=== PATIENT | male | born 1995 | race Caucasian/White ===

== ENCOUNTER 2017-08-28 08:20 | Emergency (ER) | payer OTHER ==
[~2017-08-28] VITALS: Ht 177.8 cm; Wt 101.5 kg
[~2017-08-28 08:20] MED LIST: ABILIFY10 MG PO; CONCERTA36 MG PO; DEPAKOTE250 MG PO; GUANFACINE HCL E4 MG PO; INTUNIV3 MG PO; MELATONIN5 M1 PO; METH54T PO; ZARONTIN250 MG PO; ZOLOFT100 MG PO; ZOLOFT25 MG PO
[2017-08-28 09:27] LABS: HEMATOCRIT 41.9 % (38.0-50.0); HEMOGLOBIN 14.9 G/DL (12.5-16.6); MCH 31.6 PG (29.0-34.0); MCHC 35.6 G/DL (30.0-36.0); MCV 88.8 FL (86-99); PLATELET COUNT 205 K/uL (156-360); RBC DIS.WIDTH-CV 12.7 % (11.8-14.6); RBC DIS.WIDTH-SD 41.4 % (39-53); RED BLOOD COUNT 4.72 M/uL (4.00-5.50); WHITE BLOOD COUNT 8.6 K/uL (4.1-10.2)
[2017-08-28 09:39] LABS: ALBUMIN 4.2 g/dL (3.2-4.8); CHLORIDE 106 mEq/L (99-109); POTASSIUM 3.9 mEq/L (3.7-5.4); SODIUM 143 mEq/L (136-147)
[2017-08-28 09:42] LABS: GLUCOSE 96 mg/dL (70-99)
[2017-08-28 09:43] LABS: TOTAL BILIRUBIN 0.6 mg/dL (0.0-1.0)
[2017-08-28 09:45] LABS: ALKALINE PHOSPHATASE 72 IU/L (3-129); CREATININE 0.8 mg/dL (0.6-1.3); GFR ESTIMATE (CALCULATED) > 59 mL/min/ (58.99-99999)
[2017-08-28 09:46] LABS: UREA NITROGEN (BUN) 11 mg/dL (9-23)
[2017-08-28 09:47] LABS: AST (GOT) 24 IU/L (2-34)
[2017-08-28 09:48] LABS: ALT (GPT) 22 IU/L (3-49)
[2017-08-28 09:54] LABS: APPEARANCE CLEAR ((CLEAR)); BILIRUBIN NEGATIVE; BLOOD NEGATIVE; COLOR YELLOW ((YELLOW)); GLUCOSE (STRIP) NEGATIVE; KETONES NEGATIVE; LEUKOCYTES NEGATIVE; NITRITE NEGATIVE; PROTEIN (STRIP) 30; SPECIFIC GRAVITY 1.029 (1.000-1.030); UCUL ADDED? NO
[2017-08-28] MEDS ORDERED: ZOFRAN4 MG PO (13:12)
[2017-08-28 13:21] VITALS: BP 108/53
== END 2017-08-28 13:28 | disposition home or self-care (01) ==
LOC: EME 08:20
PROVIDERS: Physician Assistant Medical
DX: R10.10 Upper abdominal pain, unspecified (principal); R42 Dizziness and giddiness; R11.2 Nausea with vomiting, unspecified; F32.9 Major depressive disorder, single episode, unspecified; F90.9 Attention-deficit hyperactivity disorder, unspecified type; F17.200 Nicotine dependence, unspecified, uncomplicated; Z86.69 Personal history of other diseases of the nervous system and sense organs
CPT/HCPCS: 74176; 80053; 81003; 85027; 93005; 99281; 99285; J1885; J2405; J7030

== ENCOUNTER 2017-09-01 12:19 | Inpatient (IN) | payer OTHER ==
[~2017-09-01] VITALS: Ht 172.7 cm; Wt 109.9 kg
[~2017-09-01 12:19] MED LIST changes: +ZOFRAN4 MG PO
[2017-09-01 13:21] LABS: APPEARANCE CLEAR ((CLEAR)); BILIRUBIN NEGATIVE; BLOOD NEGATIVE; COLOR YELLOW ((YELLOW)); GLUCOSE (STRIP) NEGATIVE; KETONES 80; LEUKOCYTES NEGATIVE; NITRITE NEGATIVE; PROTEIN (STRIP) 30; SPECIFIC GRAVITY 1.026 (1.000-1.030)
[2017-09-01 13:24] LABS: HEMATOCRIT 43.1 % (38.0-50.0); HEMOGLOBIN 15.5 G/DL (12.5-16.6); MCH 32.1 PG (29.0-34.0); MCV 89.2 FL (86-99); PLATELET COUNT 220 K/uL (156-360); RBC DIS.WIDTH-CV 12.6 % (11.8-14.6); RBC DIS.WIDTH-SD 41.1 % (39-53); RED BLOOD COUNT 4.83 M/uL (4.00-5.50); WHITE BLOOD COUNT 8.8 K/uL (4.1-10.2)
[2017-09-01 13:29] LABS: AMPHETAMINE NEGATIVE (500 ng/mL); BARBITURATES NEGATIVE (200 ng/mL); BENZODIAZEPINES NEGATIVE (150 ng/mL); BUPRENORPHINE NEGATIVE (10 ng/mL); COCAINE NEGATIVE (150 ng/mL); METHADONE NEGATIVE (200 ng/mL); METHAMPHETAMINE NEGATIVE (500 ng/mL); OPIATES (MORPHINE) NEGATIVE (100 ng/mL); OXYCODONE NEGATIVE (100 ng/mL); PHENCYCLIDINE NEGATIVE (25 ng/mL); PROPOXYPHENE NEGATIVE (300 ng/mL); THC CANNABINOIDS PRESUMPTIVE POSITIVE (50 ng/mL); TRICYCLIC ANTIDEPRESSANTS NEGATIVE (300 ng/mL)
[2017-09-01 14:02] LABS: ALBUMIN 4.7 G/DL (3.2-4.8); ALKALINE PHOSPHATASE 70 IU/L (3-129); ALT (GPT) 20 IU/L (3-49); AST (GOT) 26 IU/L (2-34); CHLORIDE 100 MEQ/L (99-109); CREATININE 0.7 MG/DL (0.6-1.3); GFR ESTIMATE (CALCULATED) > 59 mL/min/ (58.99-99999); GLUCOSE 73 mg/dL (70-99); POTASSIUM 3.9 MEQ/L (3.7-5.4); SERUM ETHYL ALCOHOL < 10 mg/dL; SODIUM 136 MEQ/L (136-147); TOTAL BILIRUBIN 0.9 MG/DL (0.0-1.0); TOTAL PROTEIN 7.7 G/DL (6.4-8.3); UREA NITROGEN (BUN) 12 mg/dL (9-23)
[2017-09-01 17:27] VITALS: BP 124/66
[2017-09-01] MEDS ORDERED: DIVALPROEX SOD500 M1 PO (18:52)
[2017-09-01] MEDS ORDERED: DEPAKOTE500 MG PO (18:53)
[2017-09-02 07:44] VITALS: BP 144/60
[2017-09-02 16:04] VITALS: BP 155/69
[2017-09-02 19:12] VITALS: BP 127/65
[2017-09-03 07:32] VITALS: BP 127/75
[2017-09-03 15:55] VITALS: BP 113/84
[2017-09-04 07:52] VITALS: BP 151/66
[2017-09-04] MEDS ORDERED: DEPAKOTE500 MG PO (09:22)
[2017-09-04] MEDS ORDERED: ZOLOFT100 MG PO (09:22)
[2017-09-04] MEDS ORDERED: ABILIFY10 MG PO (09:22)
[2017-09-04] MEDS ORDERED: DEPAKOTE250 MG PO (09:22)
== END 2017-09-04 11:40 | disposition home or self-care (01) | DRG 886 ==
LOC: EME 12:19 → 1WEST 16:07 → EDOF 16:07 → 1WEST 16:07 → ENRESERV 17:25 → 1WEST 17:26
PROVIDERS: Emergency Medicine
DX: F63.9 Impulse disorder, unspecified (principal); Z91.14 Patient's other noncompliance with medication regimen; F90.9 Attention-deficit hyperactivity disorder, unspecified type; F12.10 Cannabis abuse, uncomplicated; F17.210 Nicotine dependence, cigarettes, uncomplicated; R45.851 Suicidal ideations; Z59.0 Homelessness; F91.9 Conduct disorder, unspecified; Z91.5 Personal history of self-harm
CPT/HCPCS: 80053; 80164; 81003; 84999; 85027; 90837; 97150 GO; 97165 GO; 99281; 99285; G0480

== ENCOUNTER 2017-10-02 17:00 | Emergency (ER) | payer OTHER ==
[~2017-10-02] VITALS: Ht 180.3 cm; Wt 108.0 kg
[~2017-10-02 17:00] MED LIST changes: +DEPAKOTE500 MG PO; +DIVALPROEX SOD500 M1 PO
[2017-10-02 17:35] LABS: HEMATOCRIT 41.7 % (38.0-50.0); HEMOGLOBIN 15.1 G/DL (12.5-16.6); MCH 32.1 PG (29.0-34.0); MCHC 36.2 G/DL (30.0-36.0); MCV 88.5 FL (86-99); PLATELET COUNT 228 K/uL (156-360); RBC DIS.WIDTH-CV 12.6 % (11.8-14.6); RBC DIS.WIDTH-SD 41.1 % (39-53); RED BLOOD COUNT 4.71 M/uL (4.00-5.50); WHITE BLOOD COUNT 10.2 K/uL (4.1-10.2)
[2017-10-02 17:42] LABS: APPEARANCE CLEAR ((CLEAR)); BILIRUBIN NEGATIVE; BLOOD NEGATIVE; COLOR YELLOW ((YELLOW)); GLUCOSE (STRIP) NEGATIVE; KETONES 5; LEUKOCYTES NEGATIVE; NITRITE NEGATIVE; PROTEIN (STRIP) 30
[2017-10-02 17:47] LABS: ALBUMIN 4.3 g/dL (3.2-4.8); CHLORIDE 105 mEq/L (99-109); POTASSIUM 3.9 mEq/L (3.7-5.4); SODIUM 142 mEq/L (136-147)
[2017-10-02 17:49] LABS: GLUCOSE 116 mg/dL (70-99)
[2017-10-02 17:50] LABS: TOTAL PROTEIN 7.5 g/dL (6.4-8.3)
[2017-10-02 17:51] LABS: TOTAL BILIRUBIN 0.3 mg/dL (0.0-1.0)
[2017-10-02 17:52] LABS: SERUM ETHYL ALCOHOL < 10 mg/dL
[2017-10-02 17:52] LABS: AMPHETAMINE NEGATIVE (500 ng/mL); BARBITURATES NEGATIVE (200 ng/mL); BENZODIAZEPINES NEGATIVE (150 ng/mL); BUPRENORPHINE NEGATIVE (10 ng/mL); COCAINE NEGATIVE (150 ng/mL); METHADONE NEGATIVE (200 ng/mL); METHAMPHETAMINE NEGATIVE (500 ng/mL); OPIATES (MORPHINE) NEGATIVE (100 ng/mL); OXYCODONE NEGATIVE (100 ng/mL); PHENCYCLIDINE NEGATIVE (25 ng/mL); PROPOXYPHENE NEGATIVE (300 ng/mL); THC CANNABINOIDS NEGATIVE (50 ng/mL); TRICYCLIC ANTIDEPRESSANTS NEGATIVE (300 ng/mL)
[2017-10-02 17:53] LABS: ALKALINE PHOSPHATASE 83 IU/L (3-129); CREATININE 0.8 mg/dL (0.6-1.3); GFR ESTIMATE (CALCULATED) > 59 mL/min/ (58.99-99999)
[2017-10-02 17:54] LABS: UREA NITROGEN (BUN) 11 mg/dL (9-23)
[2017-10-02 17:55] LABS: AST (GOT) 21 IU/L (2-34)
[2017-10-02 17:56] LABS: ALT (GPT) 24 IU/L (3-49)
[2017-10-02 19:30] VITALS: BP 137/63
== END 2017-10-02 19:31 | disposition home or self-care (01) ==
LOC: EME 17:00
PROVIDERS: Emergency Medicine
DX: F43.20 Adjustment disorder, unspecified (principal); F90.2 Attention-deficit hyperactivity disorder, combined type; S61.512A Laceration without foreign body of left wrist, initial encounter; X78.9XXA Intentional self-harm by unspecified sharp object, initial encounter; F17.200 Nicotine dependence, unspecified, uncomplicated
CPT/HCPCS: 80053; 81003; 85027; 90837; 99281; 99284; G0480

== ENCOUNTER 2017-10-06 04:20 | Emergency (ER) | payer OTHER ==
[~2017-10-06] VITALS: Ht 180.3 cm; Wt 109.1 kg
[2017-10-06 05:31] LABS: ALBUMIN 4.3 g/dL (3.2-4.8); CHLORIDE 101 mEq/L (99-109); POTASSIUM 3.7 mEq/L (3.7-5.4); SODIUM 138 mEq/L (136-147)
[2017-10-06 05:34] LABS: GLUCOSE 97 mg/dL (70-99); TOTAL PROTEIN 7.4 g/dL (6.4-8.3)
[2017-10-06 05:37] LABS: ALKALINE PHOSPHATASE 75 IU/L (3-129); SERUM ETHYL ALCOHOL < 10 mg/dL
[2017-10-06 05:38] LABS: CREATININE 0.8 mg/dL (0.6-1.3); GFR ESTIMATE (CALCULATED) > 59 mL/min/ (58.99-99999)
[2017-10-06 05:39] LABS: AST (GOT) 21 IU/L (2-34); HEMATOCRIT 40.5 % (38.0-50.0); HEMOGLOBIN 14.4 G/DL (12.5-16.6); MCH 31.3 PG (29.0-34.0); MCHC 35.6 G/DL (30.0-36.0); PLATELET COUNT 233 K/uL (156-360); RBC DIS.WIDTH-CV 12.6 % (11.8-14.6); RBC DIS.WIDTH-SD 40.1 % (39-53); UREA NITROGEN (BUN) 9 mg/dL (9-23)
[2017-10-06 05:40] LABS: ALT (GPT) 23 IU/L (3-49)
[2017-10-06 05:50] LABS: TOTAL BILIRUBIN 0.7 mg/dL (0.0-1.0)
[2017-10-06 10:27] VITALS: BP 144/82
== END 2017-10-06 10:28 | disposition home or self-care (01) ==
LOC: EME 04:20
PROVIDERS: Emergency Medicine
DX: F41.9 Anxiety disorder, unspecified (principal); F90.2 Attention-deficit hyperactivity disorder, combined type; F32.9 Major depressive disorder, single episode, unspecified; S00.83XA Contusion of other part of head, initial encounter; F12.20 Cannabis dependence, uncomplicated; Y04.2XXA Assault by strike against or bumped into by another person, initial encounter; Y93.71 Activity, boxing; F17.200 Nicotine dependence, unspecified, uncomplicated
CPT/HCPCS: 80053; 85027; 90837; 99281; 99283; G0480

== ENCOUNTER 2017-10-24 01:07 | Emergency (ER) | payer OTHER ==
[~2017-10-24] VITALS: Ht 172.7 cm; Wt 91.8 kg
[2017-10-24 01:19] LABS: HEMATOCRIT 40.2 % (38.0-50.0); HEMOGLOBIN 14.4 G/DL (12.5-16.6); MCH 31.5 PG (29.0-34.0); MCHC 35.8 G/DL (30.0-36.0); PLATELET COUNT 231 K/uL (156-360); RBC DIS.WIDTH-CV 13.2 % (11.8-14.6); RBC DIS.WIDTH-SD 42.5 % (39-53); RED BLOOD COUNT 4.57 M/uL (4.00-5.50); WHITE BLOOD COUNT 7.1 K/uL (4.1-10.2)
[2017-10-24 01:30] LABS: CHLORIDE 109 mEq/L (99-109); POTASSIUM 3.5 mEq/L (3.7-5.4); SODIUM 142 mEq/L (136-147)
[2017-10-24 01:30] LABS: AMPHETAMINE NEGATIVE (500 ng/mL); BARBITURATES NEGATIVE (200 ng/mL); BENZODIAZEPINES NEGATIVE (150 ng/mL); BUPRENORPHINE NEGATIVE (10 ng/mL); COCAINE NEGATIVE (150 ng/mL); METHADONE NEGATIVE (200 ng/mL); METHAMPHETAMINE NEGATIVE (500 ng/mL); OPIATES (MORPHINE) NEGATIVE (100 ng/mL); OXYCODONE NEGATIVE (100 ng/mL); PHENCYCLIDINE NEGATIVE (25 ng/mL); PROPOXYPHENE NEGATIVE (300 ng/mL); THC CANNABINOIDS PRESUMPTIVE POSITIVE (50 ng/mL); TRICYCLIC ANTIDEPRESSANTS NEGATIVE (300 ng/mL)
[2017-10-24 01:32] LABS: GLUCOSE 91 mg/dL (70-99)
[2017-10-24 01:35] LABS: SERUM ETHYL ALCOHOL < 10 mg/dL
[2017-10-24 01:36] LABS: CREATININE 0.7 mg/dL (0.6-1.3); GFR ESTIMATE (CALCULATED) > 59 mL/min/ (58.99-99999)
[2017-10-24 01:37] LABS: UREA NITROGEN (BUN) 8 mg/dL (9-23)
[2017-10-24 02:55] VITALS: BP 115/61
== END 2017-10-24 03:08 | disposition home or self-care (01) ==
LOC: EME 01:07
DX: F12.10 Cannabis abuse, uncomplicated (principal); F32.9 Major depressive disorder, single episode, unspecified; R56.9 Unspecified convulsions; F91.9 Conduct disorder, unspecified; F31.9 Bipolar disorder, unspecified; F90.9 Attention-deficit hyperactivity disorder, unspecified type; F17.200 Nicotine dependence, unspecified, uncomplicated; Z88.8 Allergy status to other drugs, medicaments and biological substances
CPT/HCPCS: 80048; 84999; 85027; 90837; 99281; 99285; G0480

== ENCOUNTER 2017-11-03 00:55 | Emergency (ER) | payer OTHER ==
[~2017-11-03] VITALS: Ht 182.9 cm; Wt 88.6 kg
[2017-11-03 02:52] VITALS: BP 119/84
== END 2017-11-03 02:53 | disposition home or self-care (01) ==
LOC: EME 00:55
DX: S09.90XA Unspecified injury of head, initial encounter (principal); S00.83XA Contusion of other part of head, initial encounter; S00.81XA Abrasion of other part of head, initial encounter; Y00.XXXA Assault by blunt object, initial encounter; F17.200 Nicotine dependence, unspecified, uncomplicated
CPT/HCPCS: 70450; 70486; 99281; 99284